=== PATIENT | female | born 1925 | race Two or more races ===

== ENCOUNTER → 2016-12-23 | Outpatient (CLI) | payer MEDICARE, MEDICAID ==
--- NOTE | 2016-12-23 13:59 | RADRPT ---
PROCEDURE: XR Knees. CLINICAL INDICATION: Bilateral knee pain. TECHNIQUE: Total of eight views. Weightbearing frontal, oblique, and lateral views of the both kn ees. Patellar views of both knees. COMPARISON: No prior study is available for comparison. FINDINGS: There is no fracture or dislocation. The soft tissues are normal. There are degenerative changes with osteophytes arising from all 3 joint compartment margins. There is bilateral medial joint compartment narrowing, subarticular sclerosis, and deformity with left wo rse than right. There is no lytic or blastic lesion. There is no radiopaque foreign body. IMPRESSION: 1. 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 2. No acute abnormality. RPTAT: QQ .Sixto Lagos MD, MD Date Time Electronically viewed and signed by .Sixto Lagos MD, on 12/23/2016 13:59 .R/
--- NOTE | 2016-12-23 14:00 | RADRPT ---
PROCEDURE: XR Right hip and pelvis. CLINICAL INDICATION: Right hip pain and pelvic pain. TECHNIQUE: 3 views. Frontal pelvis. Frontal and lateral right hip. COMPARISON: None. FINDINGS: There is no acute fracture and there is no dislocation. There are old healed fractures of the right superior and inferior pubic rami. The soft tissues are normal. There are moderate degenerative changes of both hips with osteophytes and joint space narrowing. There is no lytic or blastic lesion. There is no radiopaque foreign body. IMPRESSION: 1. Old healed fractures of the right superior and inferior pubic rami. 2. Moderate degenerative changes of both hips. RPTAT: QQ .Sixto Lagos MD, Date Time Electronically viewed and signed by .Sixto Lagos MD, on 12/23/2016 14:00 .R/
== END | disposition home or self-care (01) ==
LOC: HKI 09:43
PROVIDERS: ATTEND Orthopaedic Surgery
DX: M17.0 Bilateral primary osteoarthritis of knee (principal); M25.562 Pain in left knee; M25.561 Pain in right knee; I10 Essential (primary) hypertension; E11.9 Type 2 diabetes mellitus without complications; E78.00 Pure hypercholesterolemia, unspecified
CPT/HCPCS: 20610; 73502; 73564; G0463; J7327